=== PATIENT | female | born 1945 | race Caucasian/White ===

== ENCOUNTER 2019-01-07 14:04 | Emergency (ER) | payer OTHER ==
[~2019-01-07] VITALS: Ht 157.5 cm; Wt 63.5 kg
[~2019-01-07 14:04] MED LIST: ALBUTEROL INHAL17 GM IH; ALPRAZOLAM; AUGMENTIN 875875 MG PO; CHEWABLE PRENA1 EACH PO; CIPROFLOXACIN500 M1 PO; CLONAZEPAM 0.50.5 M1; DOXYCYCLINE 10100 M1 PO; GABAPENTIN100 MG; METHADONE HCL 110 M1 PO; MOBIC15 MG PO; MS CONTIN15 MG PO; NEXIUM40 MG PO; OXYCODON-ACETA1 EAC1 PO; OXYCODONE HCL5 M1 PO; OXYCODONE-ACET1 EAC2 PO; OXYCONTIN CR 1010 M1 PO; PERCOCET 10-321 EACH PO; PERCOCET 5-3251 EACH PO; PERCOCET 7.5-31 EACH PO; PREDNISONE50 MG PO; PRISTIQ100 MG PO; PRISTIQ50 MG PO; RELAFEN750 MG PO; RESTORIL30 MG PO; SEROQUEL; SEROQUEL XR 30300 M1 PO; SKELAXIN 800 M800 M1 PO; SYMBICORT80 MCG/4.5 PO; TOBREX5 ML OP; VITAMIN B-1100 M1 PO; XANAX XR1 MG PO; ZANTAC 150MG T150 M1 PO; ZPAK PO; incomplete list
[2019-01-07 16:31] LABS: ABSOLUTE NEUTROPHILS 6.6 thou/uL (1.4-8.2); BASOPHILS 1.3 % (0.0-2.0); EOSINOPHILS 0.7 % (0.0-3.0); HEMATOCRIT 44.9 % (37.0-47.0); HEMOGLOBIN 15.3 gm/dL (12.0-15.0); LYMPHOCYTES 21.5 % (24.0-44.0); MCH 32.6 pg (26.0-34.0); MCHC 34.1 g/dL (28.0-37.0); MCV 95.5 fL (80.0-100.0); MONOCYTES 7.2 % (1.0-8.0); PLATELET COUNT 700 thou/uL (150-400); POLYS 69.3 % (36.0-66.0); RDW 13.4 % (10.5-14.5); WBC 9.6 thou/uL (4.0-11.0)
[2019-01-07 16:44] LABS: ANION GAP 19 mmol/L (7-16); BUN 14 mg/dL (7-18); CHLORIDE 99 mmol/L (98-107); CO2 19 mmol/L (21-32); CREATININE 0.8 mg/dL (0.6-1.0); GLUCOSE 107 mg/dL (74-106); POTASSIUM 4.2 mmol/L (3.5-5.1); SODIUM 137 mmol/L (136-145)
[2019-01-07 16:54] LABS: TROPONIN-I <0.06 ng/mL (<0.06)
[2019-01-07 16:58] LABS: URINE BILIRUBIN NEGATIVE (Negative); URINE BLOOD NEGATIVE (Negative); URINE CLARITY SL CLOUDY; URINE COLOR YELLOW; URINE GLUCOSE-RANDOM* NEGATIVE (Negative); URINE KETONES NEGATIVE (Negative); URINE LEUKOCYTES-REFLEX TRACE (Negative); URINE NITRITE-REFLEX NEGATIVE (Negative); URINE PROTEIN (DIPSTICK) 2+ (Negative); URINE UROBILINOGEN 0.2 E.U./dl (0.2-1.0)
[2019-01-07 17:05] LABS: CASTS None Seen /LPF (None Seen); CRYSTALS None Seen /LPF (None Seen); SQUAMOUS >10 Many /LPF (0-3); URINE RBC None Seen /HPF (0-2); URINE WBC-REFLEX 0-5 Rare /HPF (0-5)
[2019-01-07 17:13] LABS: AMP/METHAMP Negative (Negative); BARBITURATES Negative (Negative); BENZODIAZEPINES Negative (Negative); COCAINE Negative (Negative); METHADONE Negative (Negative); OPIATES Negative (Negative); PCP Negative (Negative)
[2019-01-07 18:30] VITALS: BP 118/62
--- NOTE | 2019-01-08 08:11 | EKG ---
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: MARIANA : 1945 Requested By: Francis Parmar Order Number: [id number] MD: Malcolm Casey Measurements Intervals [place] Rate: 133 P: 85 [place]: 124 QRS: 71 QRSD: 80 T: 83 QT: 288 QTc: 429 Interpretive Statements Sinus tachycardia Probable left atrial enlargement Baseline wander in lead(s) V3 Compared to ECG 10/29/2010 15:48:10 Electronically Signed On 01-08-2019 8:11:42 CDT by Malcolm Casey [email or web address] ��������������������������������������������� <ELECTRONICALLY SIGNED> ���������������������������������������� By: Malcolm Casey MD ��������������������������������������������� 01/08/19 08 1545 1545 Malcolm Casey MD /TEDDY
== END 2019-01-07 18:30 | disposition home or self-care (01) ==
LOC: ER 14:04
PROVIDERS: Emergency Medicine
DX: F41.9 Anxiety disorder, unspecified (principal); F17.210 Nicotine dependence, cigarettes, uncomplicated; F31.9 Bipolar disorder, unspecified; Z88.1 Allergy status to other antibiotic agents; Z88.6 Allergy status to analgesic agent